=== PATIENT | male | born 1960 | race Two or more races ===

== ENCOUNTER 2019-06-13 06:41 | Inpatient (IN) | payer OTHER ==
--- NOTE | 2019-06-12 08:30 | NUR ---
ADMITTED VIA [facility]#[id number].
[2019-06-13] VITALS (18 sets, daily range): BP systolic 131–208; BP diastolic 73–126
[~2019-06-13] VITALS: Ht 165.1 cm; Wt 93.0 kg
[2019-06-13] MEDS ORDERED: ceFAZolin sod 2 GM in D5W 110 ML IVPB ONE (07:00)
--- NOTE | 2019-06-13 07:11 | Pre-Procedure Note/Attestation ---
Pre-Procedure Note/Attestation Complete Prior to Procedure Planned Procedure: not applicable Procedure Narrative: Cervical 56 artificial disc replacement, cervical 67 anterior cervical discectomy and fusion Indications for Procedure Pre-Operative Diagnosis: herniation C56,67 Attestation I attest that I discussed the nature of the procedure; its benefits; risks and complications; and alternatives (and the risks and benefits of such alternatives ), prior to the procedure, with the patient (or the patient's legal abrasives sales representative). I attest that, if there was a reasonable possibility of needing a blood transfusion, the patient (or the patient's legal abrasives sales representative) was given the [facility] standardized written summary, pursuant to the [place] Blood Safety Act ([place] Health and Safety Code # 1645, as amended). I attest that I re-evaluated the patient just prior to the surgery and that there has been no change in the patient's H&P, except as documented below: Casa Costa MD Jun 13, 2019 07:11
--- NOTE | 2019-06-13 07:12 | Brief Operative Note ---
Immediate Post Operative Note Operative Note Chief Complaint: neck pain and radiculopathy Pre-op Diagnosis: herniation C56,67 Procedure: Cervical 56 artificial disc replacement, cervical 67 anterior cervical discectomy and fusion Post-op Diagnosis: same as pre-op Findings: consistent w/pre-op dx studies Surgeon: Julissa Ampoule Filler And Sealer: Gil Anesthesia: general Specimen: none Complications: none Condition: stable Fluids: IVF Estimated Blood Loss: minimal Drains: none Implant(s) used?: Yes - prodisc c sz5, nuvasive interlock sz 6 ,screws 13mmx3 Casa Costa MD Jun 13, 2019 07:12
[2019-06-13] MEDS ORDERED: MEDROL DOSEPAK4 MG ORAL (08:02)
[2019-06-13] MEDS ORDERED: CELEBREX200 MG ORAL (08:02)
[2019-06-13] MEDS ORDERED: LR 1000ml 1,000 ML IVLG SCH (08:37)
--- NOTE | 2019-06-13 08:38 | Anethesia Preoperative Eval ---
Anesthesia Pre-op PMH/ROS General Date of Evaluation: Jun 13, 2019 Time of Evaluation: 09:16 Anesthesiologist: Lm ASA Score: ASA 3 Mallampati Score Class I : Soft palate, uvula, fauces, pillars visible Class II: Soft palate, uvula, fauces visible Class III: Soft palate, base of uvula visible Class IV: Only hard plate visible Mallampati Classification: Class III Surgeon: Julissa Diagnosis: Neck Pain Surgical Procedure: ADR C5-6, ACDF C6-7 Anesthesia History: none Social History: current smoker Family History: no anesthesia problems Allergies: Coded Allergies: No Known Allergies (Unverified , 06/11/19) Medications: see eMAR Patient NPO?: Yes NPO Date: Jun 12, 2019 NPO Time: 1800 Past Medical History Cardiovascular: Reports: HTN, other - HL Pulmonary: Reports: COPD - Smoker Other: obesity - BMI 36 Anesthesia Pre-op Phys. Exam Physician Exam Last Vital Signs Date Time Temp Pulse Resp B/P (MAP) Pulse Ox O2 Delivery O2 Flow Rate FiO2 06/13/19 07:55 97.1 59 20 159/97 (117) 98 06/13/19 07:40 Room Air Constitutional: NAD Neurologic: CN 2-12 intact Cardiovascular: RRR Respiratory: CTA Gastrointestinal: S/NT/ND Airway Exam Mallampati Score: Class III MO: limited ROM: limited Teeth: missing, intact Anesthesia Pre-op A/P Risk Assessment & Plan Assessment: ASA 3 Plan: GA, SED, GlideScope Go Status Change Before Surgery: No Pre-Antibiotics Dru Grams Ancef IV Given Within 1 Hr of Incision: Yes Time Given: 09:31 Fuad Amato MD Jun 13, 2019 08:38
[2019-06-13] MEDS ORDERED: HYDROcodone/Acetamin 7.5/325 tab ORAL PRN ×3 (08:45→14:30)
[2019-06-13] MEDS ORDERED: Acetaminophen (Non formulary) 100 ML IV SCH (08:45)
[2019-06-13] MEDS ORDERED: Ketorolac 30mg Inj IV PRN ×2 (08:45)
[2019-06-13] MEDS ORDERED: Midazolam 2mg/2ml Inj IVP PRN (08:45)
[2019-06-13] MEDS ORDERED: Metoclopramide 10mg/2ml Inj IVP PRN ×2 (08:45→14:30)
[2019-06-13] MEDS ORDERED: DiphenhydrAMINE 50mg/ml Inj IVP PRN (08:45)
[2019-06-13] MEDS ORDERED: fentaNYL 100 mcg/2 mL IV PRN (08:45)
[2019-06-13] MEDS ORDERED: oxyCODONE HCL/Acetaminophen 5/325mg ORAL PRN (08:45)
[2019-06-13] MEDS ORDERED: Atropine Sulfate 0.4mg/ml inj IVP PRN (08:45)
[2019-06-13] MEDS ORDERED: HYDROcodone/Acetamin 5/325 tab ORAL PRN ×2 (08:45→14:30)
[2019-06-13] MEDS ORDERED: Hydromorphone 0.5mg/0.5ml inj IVP PRN (08:45)
[2019-06-13] MEDS ORDERED: Meperidine 50mg/ml Inj(FOR RIGORS ONLY) IVP PRN (08:45)
[2019-06-13] MEDS ORDERED: LORazepam Inj 2mg/ml 1ml IV PRN (08:45)
[2019-06-13] MEDS ORDERED: NS Irrig 1000ml ONE (09:00)
[2019-06-13] MEDS ORDERED: Propofol 1,000mg/ 100ml btl IV ONE (09:00)
[2019-06-13] MEDS ORDERED: Sterile Water Irrig 1000ml IRRIG ONE (09:00)
[2019-06-13] MEDS ORDERED: LR 1000ml ONE (09:00)
[2019-06-13] MEDS ORDERED: Thrombin 5000 units TOPIC ONE ×2 (09:07→10:20)
[2019-06-13] MEDS ORDERED: Bacitracin 50000 Units Vial ONE (09:07)
[2019-06-13] MEDS ORDERED: Gelfoam Size TOPIC ONE (09:07)
[2019-06-13] MEDS ORDERED: Rocuronium Bromide 50mg/5ml Inj IV ONE (09:09)
[2019-06-13] MEDS ORDERED: fentaNYL 100 mcg/2 mL ONE ×3 (09:19→11:24)
[2019-06-13] MEDS ORDERED: Sodium Chloride 10ml vial INJ ONE (09:19)
[2019-06-13] MEDS ORDERED: Lidocaine 1% MPF 10mg/ml 5ml ONE (09:19)
[2019-06-13] MEDS ORDERED: Lidocaine 1% Plain 30 ml INJ ONE ×2 (09:20→10:48)
--- NOTE | 2019-06-13 10:14 | Immediate Post-Op Evaluation ---
Immediate Post-Op Evalulation Immediate Post-Op Evalulation Procedure: ADR C5-6, ACDF C6-7 Date of Evaluation: Jun 13, 2019 Time of Evaluation: 12:27 IV Fluids: 1000 LR Blood Products: 0 Estimated Blood Loss: 75 Urinary Output: 300 Blood Pressure Systolic: 208 Blood Pressure Diastolic: 116 Pulse Rate: 91 Respiratory Rate: 16 O2 Sat by Pulse Oximetry: 97 Temperature (Fahrenheit): 97 Pain Score (1-10): 2 Nausea: No Vomiting: No Complications 0 Patient Status: awake, reacts, patent, extubated, none Hydration Status: adequate Dru Grams Ancef IV Given Within 1 Hr of Incision: Yes Time Given: 09:31 Fuad Amato MD Jun 13, 2019 10:14
[2019-06-13] MEDS ORDERED: Glycopyrrolate 0.2mg/ml 1ml Vial ONE (11:36)
[2019-06-13] MEDS ORDERED: Neostigmine 1mg/ml 10ml Inj ONE (11:36)
[2019-06-13] MEDS: Labetalol 5mg/ml 20ml vial IV PRN ×2 (12:27→12:51)
--- NOTE | 2019-06-13 13:05 | NUR ---
1300 DR LIRIANO CALLED AWARE OF HEMATOMA ON INCISION SITE . ICE PACK APPLIED . UPDATED OF PTS CONDITION
--- NOTE | 2019-06-13 14:00 | NUR ---
NURSE NOTES: Received report from Olivia Adkins RN. pt a/a/o sleeping in bed with nos signs of distress or other issues at this time. pt VS: 145/91, HR: 63, temp: 98.2, O2 sat: 99% on 3L via n/c. surgical dressing intact with Dermabond and ice pack. pt has an hematoma per repot Dr. Costa and Dr. Matthews are aware. Gabriel cath was removed prior to sending the pt out to the floor. Gabriel out put 300ml. RN will monitor post void. IV on the Left AC gauge#18 running LR's RN will change fluids as indicated by MD. at bed side. call light within reach, bed in lowest position. side rales up x2. I will f/u as needed.
[2019-06-13] MEDS ORDERED: Naloxone 0.4mg/ml Inj IVP PRN (14:30)
[2019-06-13] MEDS ORDERED: Morphine Sulfate 4mg/ml Inj (IV USE ONLY) IV PRN (14:30)
[2019-06-13] MEDS ORDERED: Milk of Magnesia 30ml Ud ORAL PRN (14:30)
[2019-06-13] MEDS ORDERED: HYDROmorphone 1mg/ml Carpuject IVP PRN (14:30)
[2019-06-13] MEDS ORDERED: Chloraseptic Spray 20mL Bottle ORAL PRN (15:00)
[2019-06-13] MEDS: NS w/KCl 20mEq 1000ml 1,000 ML IV SCH (15:32)
[2019-06-13] MEDS: ceFAZolin sod 1 GM in D5W 55 ML IV SCH (17:35)
[2019-06-13] MEDS: Docusate 100mg cap ORAL SCH (17:35)
[2019-06-13] MEDS: Dexamethasone 4mg/ml vial IVP SCH (17:35)
[2019-06-13] MEDS: Morphine Sulfate 2mg/ml Inj(IV/IM USE ONLY) IV PRN ×2 (17:46→17:53)
--- NOTE | 2019-06-13 19:26 | NUR ---
HAND-OFF: Report given to Micah HOLLIDAY, pt in stable condition. - pt was able to void after Gabriel cath was removed.
--- NOTE | 2019-06-13 20:11 | NUR ---
NURSE NOTES: Received report from AM RNTerry. Patient is resting with no c/o pain or SOB on room air. Anterior neck wound sealed with dermabond. Dark purple hematoma visible with no additional redness or swelling. Fluids running to left AC IV. Requesting food at this time. Family at bedside.
--- NOTE | 2019-06-13 20:17 | General Progress Note ---
Assessment/Plan Assessment/Plan: neck pain and radiculopathy herniation C56,67 Cervical 56 artificial disc replacement, cervical 67 anterior cervical discectomy and fusion PLAN 1. incentive spirometry 2. SCD 3. PT evaluation and therapy 4. Hydration 5. Pain management 6. discharge once stable with outpatient follow up Subjective Allergies: Coded Allergies: No Known Allergies (Unverified , 06/11/19) Subjective asked to follow up postop Objective Last 24 Hour Vital Signs Date Time Temp Pulse Resp B/P (MAP) Pulse Ox O2 Delivery O2 Flow Rate FiO2 06/13/19 20:00 98.1 76 18 131/73 (92) 98 06/13/19 18:23 97.7 06/13/19 16:00 97.7 65 21 136/80 (98) 97 06/13/19 14:40 97.8 61 20 137/79 (98) 97 06/13/19 14:10 98.1 61 21 150/90 (110) 97 06/13/19 13:45 97.4 06/13/19 13:40 97.6 65 20 140/93 (109) 97 06/13/19 13:31 63 15 145/91 98 Nasal Cannula 4 06/13/19 13:25 97.4 60 16 163/100 98 Nasal Cannula 4 06/13/19 13:15 62 14 153/92 100 Nasal Cannula 4 06/13/19 13:09 69 15 178/105 100 Simple Mask 6 06/13/19 13:00 64 12 173/99 100 Simple Mask 6 06/13/19 12:51 70 174/116 06/13/19 12:50 68 14 178/99 99 Simple Mask 6 06/13/19 12:40 74 13 186/102 98 Simple Mask 6 06/13/19 12:35 69 11 182/126 96 Simple Mask 6 06/13/19 12:30 68 12 196/105 96 Simple Mask 6 06/13/19 12:27 82 206/119 06/13/19 12:25 82 14 206/119 98 Simple Mask 6 06/13/19 12:20 80 14 190/120 98 Simple Mask 6 06/13/19 12:16 97.0 91 13 208/116 98 Simple Mask 6 06/13/19 12:15 91 16 97 06/13/19 07:55 97.1 59 20 159/97 (117) 98 06/13/19 07:40 Room Air Height (Feet): 5 Height (Inches): 5.00 Weight (Pounds): 205 Objective WDWN NAD clear breath sounds bilaterally without rhonchi or wheeze [id number] without MRG NABS nontender no HSM no CCE nonfocal Andrew Gaxiola MD Jun 13, 2019 20:17
[2019-06-14] VITALS: BP 166/84
[2019-06-14] MEDS: Dexamethasone 4mg/ml vial IVP SCH ×3 (00:14→12:53)
[2019-06-14] MEDS: ceFAZolin sod 1 GM in D5W 55 ML IV SCH ×2 (00:14→10:38)
[2019-06-14] MEDS: NS w/KCl 20mEq 1000ml 1,000 ML IV SCH ×2 (00:14→11:00)
[2019-06-14] MEDS: Morphine Sulfate 4mg/ml Inj (IV USE ONLY) IV PRN ×2 (00:24→05:38)
[2019-06-14 04:00] VITALS: BP 182/80
--- NOTE | 2019-06-14 07:45 | Operative Note - Dictated ---
DATE OF OPERATION: 06/13/2019 SURGEON: Casa Costa M.D., Orthopedic Spine Surgeon. DINKEY ENGINE FIRER/FIREMAN: SELAM Casillas. ANESTHESIOLOGIST: Fuad Amaot M.D. PREOPERATIVE DIAGNOSES: 1. Intractable neck pain. 2. Radiculopathy. 3. Herniation, C5-C6 and C6-C7. 4. Neural foraminal stenosis, C5-C6 and C6-C7. 5. Stenosis. POSTOPERATIVE DIAGNOSES: 1. Intractable neck pain. 2. Radiculopathy. 3. Herniation, C5-C6 and C6-C7. 4. Neural foraminal stenosis, C5-C6 and C6-C7. 5. Stenosis. PROCEDURE PERFORMED: 1. Anterior cervical discectomy and artificial disc replacement of C5-C6 using a Synthes ProDisc-C size 5 height. 2. Anterior cervical discectomy and fusion of C6-C7 using NuVasive Cervical Interlock C size 6 PEEK cage and three 13 mm screws with Osteocel 1 mL allograft bone and local autograft. 3. Use of intraoperative microscope. 4. Motor evoked potential monitoring. 5. Somatosensory evoked potential monitoring. 6. Supervision and interpretation of fluoroscopy. COMPLICATIONS: None. ANESTHESIA: General. ESTIMATED BLOOD LOSS: Less than 50 mL. INDICATIONS FOR SURGERY: This patient is a 58-year-old male, who has a history of diagnoses as listed above. As of result of this, the patient sustained intractable neck pain, radiculopathy, herniation, C5-C6 and C6-C7, neural foraminal stenosis, C5-C6, C6-C7, and stenosis. We tried a course of conservative management but despite this course there was still a significant component of persistent, recalcitrant neck pain and arm pain. The MRI demonstrated significant neural foraminal compromise secondary to disc herniations at C5-C6 and C6-C7. We had a long discussion with Ángel regarding the risks and benefits of surgery. Our discussion included but was not limited to nonoperative management, chiropractic management, another epidural steroid injection as well definitive management in the form of surgery. We recommended an artificial disc replacement of cervical C5-C6 and anterior cervical discectomy and fusion of cervical and C6-C7 as final definitive management. We reviewed the risks and benefits of surgery with the patient. Our discussion included a comprehensive review of the clinical issues and the nature of the clinical decision. We reviewed the alternatives, including doing nothing. The patient elected to proceed accordingly with an artificial disc replacement of cervical C5-C6 and anterior cervical discectomy and fusion of cervical and C6-C7. We had a long discussion regarding the risks, alternatives and benefits of surgery. Our description of the risks included a discussion in person as well as a signed consent which detailed all pertinent risks from the procedure itself. Briefly, our discussion included but was not limited to infection, bleeding, pseudarthrosis, spinal cord injury, neurovascular injury, dural tear, CSF leak, neuropathy, paralysis, permanent weakness/drop foot/drop arm, paresthesias, blindness, palsy and weakness. The patient understood there may be a need for a revision surgery or additional procedures. Approach-related complications including dysphonia, dysphagia, blindness, permanent vocal cord and neural injury, hematoma, swallowing and breathing difficulty. Medical complications were reviewed including liver, kidney, shock, cardiopulmonary failure, anesthesia complications including , swelling, damage to the musculature, larynx/voice injury or loss, esophagus/throat, trachea, blood vessels and muscles/muscular sprain and lungs/pneumothorax during this surgical procedure; injury to deeper structures may be temporary or permanent. After this review of risks, the patient understood these and elected to proceed. A written and verbal consent was given. We discussed the pros and cons of all the alternatives. We discussed the uncertainties associated with the decision. Afterwards I assessed the patient's understanding and explored their preferences. All questions were answered and no guarantees were given. Medical clearance was obtained prior to surgery. INTRAOPERATIVE FINDINGS: At C5-C6, there was a noticeable tear in the posterior longitudinal ligament approximately 20 degrees cephalad to caudad. Through this annular tear I noticed a remnant of the herniated nucleus pulposus through the outer limb of the tear itself. This was probed with the Microsect curette which led posteriorly to the disc fragment itself encroaching on the neural foramina along the thecal sac and spinal cord. The disc itself was spongy and not calcified whatsoever. At C6-C7, the disc itself was spongy, not calcified or degenerated posterior to the outer annulus fibrosus tissues of the disc. I noticed a tear in the PLL. The tear was again approximately 20 degrees cephalad to caudad. Posterior to the tear itself, once it was probed and I noted a herniated fragment, which was bilobed, more encroaching on the right side of neural foramina and entered in neural elements at C6-C7. DESCRIPTION OF PROCEDURE: Under the benefit of general endotracheal anesthesia and with the assistance of the entire operative team, the patient was moved from the gurney onto the operative table in the supine position. The head was secured and carefully positioned appropriately. Bilateral arms were secured with Gel Pads and foam and all bony prominences were padded. For the bilateral lower extremities SCD and AMRITA hose were placed for DVT prophylaxis. A surgical timeout was called which corroborated our planned procedure of an artificial disc replacement of cervical C5-C6 and anterior cervical discectomy and fusion of cervical and C6-C7. Preoperative antibiotics were administered within 30 minutes of the incision for antibiotic prophylaxis. Using lateral fluoroscopic radiography, the operative levels were delineated. Next the wound was prepped and draped with Chlorhexidine and sterile drapes. An incision was based on lateral fluoroscopy and we centered our incision at the C5-C6 and C6-C7. Interspace and next using a standard Aranda-Fernández anterior based approach the incision was taken down through the skin and subcutaneous tissues until the vertebral bodies and their corresponding disc spaces were visualized. A needle was placed into the interspace to confirm placement of the operative interspace and we performed the remainder of procedure under microscopic visualization. Next, using a bipolar and Bovie cautery to ensure meticulous hemostasis, the longus colli was mobilized bilaterally and retractors were placed deep to the longus colli bilaterally to address retraction. Next, we turned our attention to the radical anterior discectomy. This was initially performed at C5-C6. First by using a 15 blade scalpel followed by narrow pituitaries and a Microsect 5-B curette was used to denude the endplate of all cartilaginous tissue. Next using a Teramind Hany AM8 drill bit the vertebral endplates were denuded of all residual cartilage in a [id number] and layer by layer fashion, and ultimately the posterior uncinate joints bilaterally and posterior osteophytic lips and margins were carefully denuded until clear visualization of the posterior longitudinal ligament was possible. An endplate preparation was performed in the exact same fashion using an intervertebral production crew supervisor, sequential distraction was obtained throughout the disc space. We saw a tear/rent in the PLL and this was carefully mobilized and dissected using a Microsect 1-B curet until we visualized a discrete disc herniation with compression of the spinal cord as well as neural foramina right. This neural foraminal compression was carefully resected using a Kerrison-1 and Kerrison-2 rongeurs until complete decompression of the spinal cord was visualized and complete decompression of the neural foramina and nerve root therein as well as the axilla and lateral margin of the nerve root was visualized and subsequently completely decompressed. The family was notified at one hour intervals throughout the procedure to provide for consistent updates. We next turned our attention towards trialing our implant within the disc space. We initially tried size 5 and this ProDisc Cervical spacer fit well in regards to depth and width. This implant was opened and prepared. Next under direct visualization I confirmed excellent fit in respect to the anterior and posterior vertebral bodies, the uncinate joints and in regards to toggle. Once satisfied with this placement on serial AP and lateral fluoroscopy I turned my attention towards cutting our ana. These were cut in the bones using a reciprocating drill and afterwards all free fragments of bone were irrigated. Next FloSeal was placed into the interspace, then removed in its entirety and the implant was inserted using fluoroscopic guidance. Next the Synthes ProDisc C size 5 ADR was then carefully advanced and secured into the intervertebral space under direct visualization and with supervision of AP and lateral fluoroscopic views. I next turned my attention towards the radical anterior discectomy. This was then performed at Cervical C6-C7 first by using a 15 blade scalpel followed by narrow pituitaries and a micro-sect 5-B curette was used to denude the endplate of all cartilaginous tissue. Next using a Teramind Hany AM8 drill bit the vertebral endplates were denuded of all cartilaginous tissue in a [id number] and layer by layer fashion, and ultimately the posterior uncinate joints bilaterally and posterior osteophytic lips and margins were carefully denuded until wide and thorough visualization of the posterior longitudinal ligament was possible. At this level the endplate preparation was performed in the exact same fashion using an intervertebral production crew supervisor, sequential distraction was obtained throughout the disc space. We saw a tear/rent in the PLL and this was carefully mobilized and dissected using a micro-set 1-B curette until we visualized an obvious disc herniation with compression of the spinal cord as well as neural foramina right sided. This neural foraminal compression was carefully resected using a Kerrison-1 and Kerrison-2 rongeurs until complete decompression of the spinal cord was visualized and complete decompression of the neural foramina and nerve root therein as well as the axilla and lateral margin of the nerve root was visualized and subsequently completely decompressed. We next turned our attention towards trialing our implant within the disc space. We initially tried size 5 and afterwards size 6 trial from the NuVasive interlock system at each level, which appeared to be appropriate under AP and lateral fluoroscopy as well as in terms of its height, depth, width and lack of toggle. The PEEK polyetheretherketone interbody cages were then both packed with allograft bone from Osteocel and local autograft bone matrix. Next these were then carefully advanced and secured into their intervertebral spaces under direct visualization and with supervision of AP and lateral fluoroscopic views. We next turned our attention towards plating. Plating was performed at each level with the [employer] interlock-C plating system. A total of three screws, size 13 mm in length were inserted and confirmed under AP and lateral fluoroscopy and confirmed to be in excellent position. After a finger sweep we confirmed removal of all sponges. The retractor was removed and we next turned our attention to meticulous hemostasis with FloSeal and bipolar cautery. After the sponge and needle count was again found to be correct with our second count, we next turned our attention to closure. The wound was again copiously irrigated with antibiotic impregnated saline Closure consisted of 4-0 clear nylon for the platysma, and 5-0 clear nylon for the superficial skin. Final skin closure and dressings consisted of Dermabond. Prior to final closure, a final radiograph was obtained which demonstrated the hardware is intact with excellent position throughout. The patient tolerated the procedure well. The patient was carefully extubated after the conclusion of surgery. We discussed the findings of the surgery with the family upon completion of the case. At this point the patient was transferred to the spine floor for further observation. Casa Costa M.D. DR: LEE JOB#: [id number] CC: CIARAN
--- NOTE | 2019-06-14 07:51 | NUR ---
HAND-OFF: Report given to MG Ayala. Patient in stable condition.
--- NOTE | 2019-06-14 07:52 | NUR ---
NURSE NOTES: Received report form MG Obrien. Rounding done with outgoing nurse. Pt a/o x 4, in bed. No respiratory distress noted. Denies any pain at this time. Neck surgical dressing is C/D/I. Bed in lowest position, call light within reach. Will continue to monitor.
[2019-06-14 08:00] VITALS: BP 184/89
[2019-06-14] MEDS: Docusate 100mg cap ORAL SCH (08:51)
--- NOTE | 2019-06-14 09:13 | 48 Hour Post Anesthesia Eval ---
Post Anesthesia Evaluation Procedure: ADR C5-6, ACDF C6-7 Date of Evaluation: Jun 14, 2019 Airway: patent Nausea: No Vomiting: No Hydration Status: adequate Cardiopulmonary Status: at baseline Mental Status/LOC: patient returned to baseline Follow-up Care/Observations: Patient hypertensive this am. Adequate BP controlled recommended Post-Anesthesia Complications: 0 Follow-up care needed: N/A - further care as per primary team Clare Dean MD Jun 14, 2019 09:13
[2019-06-14 10:00] VITALS: BP 161/85
[2019-06-14] MEDS ORDERED: NORVASC5 MG ORAL (11:35)
[2019-06-14] MEDS ORDERED: NORCO 10-325 T1 EACH ORAL (11:35)
[2019-06-14] MEDS ORDERED: CARISOPRODOL350 MG ORAL (11:36)
[2019-06-14 12:00] VITALS: BP 155/90
--- NOTE | 2019-06-14 12:13 | NUR ---
P.T Note: P.T evaluation completed and tx initiated per spinal protocol. See P.T evaluation for current functional status.
[2019-06-14 12:53] VITALS: BP 155/90
--- NOTE | 2019-06-14 13:35 | NUR ---
NURSE NOTES: [facility] pharmacy delivered home meds ([place], Norvasc), not [facility]. Patient spoke to the pharmacist at [facility] pharmacy and pt will crop picker [facility] pharmacy located in [place].
--- NOTE | 2019-06-14 13:45 | NUR ---
NURSE NOTES: Discharge instruction was given to pt/. Home meds were given. Belongings list was checked. IV access/arm band was removed. Pt a/o x 4. Pt discharged with in stable condition.
--- NOTE | 2019-06-14 14:58 | General Progress Note ---
Assessment/Plan Assessment/Plan: neck pain and radiculopathy herniation C56,67 Cervical 56 artificial disc replacement, cervical 67 anterior cervical discectomy and fusion PLAN 1. incentive spirometry 2. SCD 3. PT evaluation and therapy 4. Hydration 5. Pain management 6. discharge home impression, plan, and exam edited and reviewed in detail care discussed with RN Subjective Allergies: Coded Allergies: No Known Allergies (Unverified , 06/11/19) Subjective asked to follow doing well dc planning Objective Last 24 Hour Vital Signs Date Time Temp Pulse Resp B/P (MAP) Pulse Ox O2 Delivery O2 Flow Rate FiO2 06/14/19 12:53 155/90 06/14/19 12:00 97.6 63 20 155/90 (111) 98 06/14/19 10:00 67 161/85 (110) 06/14/19 09:00 Room Air 06/14/19 08:53 184/89 06/14/19 08:00 97.1 71 20 184/89 (120) 96 06/14/19 04:00 97.4 72 20 182/80 (114) 96 06/14/19 00:00 98.3 79 16 166/84 (111) 96 06/13/19 21:00 Room Air 06/13/19 20:00 98.1 76 18 131/73 (92) 98 06/13/19 18:23 97.7 06/13/19 16:00 97.7 65 21 136/80 (98) 97 Intake and Output 06/13/19 06/14/19 19:00 07:00 Intake Total 2600 ml 1200 ml Output Total 350 ml Balance 2250 ml 1200 ml Intake Oral 1000 ml IV Total 1600 ml 1200 ml Output Urine Total 300 ml Estimated Blood Loss 50 ml Height (Feet): 5 Height (Inches): 5.00 Weight (Pounds): 205 Objective WDWN NAD clear breath sounds bilaterally without rhonchi or wheeze [id number] without MRG NABS nontender no HSM no CCE nonfocal Andrew Gaxiola MD Jun 14, 2019 14:58
--- NOTE | 2019-06-14 16:45 | Discharge Summary ---
DATE OF ADMISSION: 06/13/2019 DATE OF DISCHARGE: 06/14/2019 PROCEDURE PERFORMED DURING ADMISSION: Artificial disc replacement of C5-C6, anterior cervical discectomy and fusion of C6-C7. REASON FOR ADMISSION: Herniation, C5-C6 and C6-C7. HOSPITAL COURSE/TREATMENT RENDERED: DISCHARGE PHYSICAL EXAM: 1. Patient was ambulating with and without the assistance of physical therapy. 2. Prior to discharge home incision was clean and dry with minimal swelling. 3. Follows commands. 4. Alert and oriented. 5. Gabriel discontinued, voiding. 6. Incentive spirometer at bedside. 7. IVF hep locked. MOTOR: Demonstrates expected postoperative bulk and tone. Moves biceps, triceps, and deltoid musculature on command. Moves hip flexors, quadriceps, tibialis anterior, EHL, gastrocsoleus musculature on command as well. TREATMENT RENDERED: 1. Daily nursing care. 2. Physical Therapy. 3. Occupational Therapy. 4. Intravenous medications. 5. Oral medications. 6. Daily postoperative examinations by Spine surgery team. CONDITION OF PATIENT ON DISCHARGE: The condition on discharge is stable for discharge to home. DISCHARGE INSTRUCTIONS: Our specific instructions relating to physical activity, medications diet and follow-up care are detailed in our standard operative folder and were given to this patient prior to surgery. We will however summarize these briefly as stated below. Regarding physical activity we would like the patient to limit their flexion, extension and rotation. We also require a limitation on their bending lifting and twisting. All medication has been called in prior to surgery to their pharmacy of choice. They can resume their regular diet once tolerated. We would like them to shower and limit soaking the wound in a tub/Jacuzzi/the ocean for a period of one month or until the incision is completely healed. We will have them follow up in our office in three weeks time for their regularly scheduled appointment. They understand to call our office tomorrow to schedule the time for their three week followup appointment. The patient will notify us should they experience any increase in the severity of pain, redness/swelling/ or drainage from their incision. Casa Costa M.D. DR: RENUKA JOB#: [id number] CC:
--- NOTE | 2019-06-17 16:23 | Diagnostic Imaging Report ---
INDICATION: Pain, intraoperative TECHNIQUE: Intraoperative imaging Fluoroscopy time: 50.3 seconds Total dose: 0.57009 mGym2 Total number of images: 5 COMPARISON: None FINDINGS: Intraoperative images document disc prosthesis at C5-6 and anterior fusion hardware at C6-7. IMPRESSION: Intraoperative imaging, as described
== END 2019-06-14 14:30 | disposition home or self-care (01) | DRG 473 ==
LOC: SDSOVERFLO 06:41 → 3E 13:43
PROC: 0RR30JZ Replacement of Cervical Vertebral Disc with Synthetic Substitute, Open Approach (ICD-10-PCS; principal; 2019-06-13 09:30)
PROC: 0RG10A0 Fusion of Cervical Vertebral Joint with Interbody Fusion Device, Anterior Approach, Anterior Column, Open Approach (ICD-10-PCS; principal; 2019-06-13 09:30)
PROC: 01N10ZZ Release Cervical Nerve, Open Approach (ICD-10-PCS; principal; 2019-06-13 09:30)
PROC: 0RB30ZZ Excision of Cervical Vertebral Disc, Open Approach (ICD-10-PCS; principal; 2019-06-13 09:30)
DX: M50.222 Other cervical disc displacement at C5-C6 level (principal); M48.02 Spinal stenosis, cervical region; V89.2XXS Person injured in unspecified motor-vehicle accident, traffic, sequela; F17.200 Nicotine dependence, unspecified, uncomplicated
CPT/HCPCS: 36415; 72040; 76000; 86850; 86900; 86901; 87081; 94003; 94150; J2405; J2710

== ENCOUNTER 2020-06-16 05:11 | Inpatient (IN) | payer OTHER ==
[2020-06-16] VITALS (14 sets, daily range): BP systolic 126–158; BP diastolic 66–98
[~2020-06-16] VITALS: Ht 165.1 cm; Wt 90.0 kg
[~2020-06-16 05:11] MED LIST: CARISOPRODOL350 MG ORAL; CELEBREX200 MG ORAL; MEDROL DOSEPAK4 MG ORAL; NORCO 10-325 T1 EACH ORAL; NORVASC5 MG ORAL
--- NOTE | 2020-06-16 06:29 | Anethesia Preoperative Eval ---
Anesthesia Pre-op PMH/ROS General Date of Evaluation: Jun 16, 2020 Anesthesiologist: Charly ASA Score: ASA 2 Mallampati Score Class I : Soft palate, uvula, fauces, pillars visible Class II: Soft palate, uvula, fauces visible Class III: Soft palate, base of uvula visible Class IV: Only hard plate visible Mallampati Classification: Class II Surgeon: Julissa Diagnosis: Lumbar radiculopathy Surgical Procedure: Right L4-5, L5-S1 hemilaminotomy, foraminotomy, microdiscectomy Anesthesia History: none Family History: no anesthesia problems Allergies: Coded Allergies: No Known Allergies (Unverified , 06/11/19) Medications: see eMAR Patient NPO?: Yes NPO Date: Jun 16, 2020 NPO Time: 00:00 Past Medical History Cardiovascular: Reports: HTN, other - HLD; Denies: CAD, DC, valve dz, arrhythmia Pulmonary: Denies: asthma, COPD, DARION, other Gastrointestinal/Genitourinary: Reports: GERD; Denies: CRI, ESRD, other Neurologic/Psychiatric: Denies: dementia, CVA, depression/anxiety, TIA, other Endocrine: Denies: DM, hypothyroidism, steroids, other HEENT: Denies: cataract (L), cataract (R), glaucoma, [place] (L), [place] (R), other Hematology/Immune: Denies: anemia, DVT, bleeding disorder, other Musculoskeletal/Integumentary: Reports: OA, other - right leg numbness; Denies: RA, DJD, DDD, edema PSxH Narrative: ACDF Anesthesia Pre-op Phys. Exam Physician Exam Last Vital Signs Date Time Temp Pulse Resp B/P (MAP) Pulse Ox O2 Delivery O2 Flow Rate FiO2 06/16/20 06:01 Room Air 06/16/20 05:43 96.8 50 18 139/88 (105) 100 Constitutional: NAD Cardiovascular: RRR Respiratory: CTA Airway Exam Mallampati Score: Class II MO: full ROM: full Teeth: intact Anesthesia Pre-op A/P Labs see chart Studies Pre-op Studies: EKG - SB, CXR - WNL, other - COVID negative Risk Assessment & Plan Assessment: ASA II Plan: GA Status Change Before Surgery: No Pre-Antibiotics Drug: Ancef 2g Given Within 1 Hr of Incision: Yes Clare Parks MD Jun 16, 2020 06:29
[2020-06-16] MEDS ORDERED: fentaNYL 100 mcg/2 mL IV PRN (06:30)
[2020-06-16] MEDS ORDERED: Lidocaine 1% MPF 10mg/ml 5ml ONE (06:30)
[2020-06-16] MEDS ORDERED: Hydromorphone 0.5mg/0.5ml inj IVP PRN (06:30)
[2020-06-16] MEDS ORDERED: DiphenhydrAMINE 50mg/ml Inj IVP PRN (06:30)
[2020-06-16] MEDS ORDERED: Midazolam 2mg/2ml Inj IVP PRN (06:30)
[2020-06-16] MEDS ORDERED: Labetalol 5mg/ml 20ml vial IV PRN (06:30)
[2020-06-16] MEDS ORDERED: LR 1000ml 1,000 ML IVLG SCH (06:30)
[2020-06-16] MEDS ORDERED: LORazepam Inj 2mg/ml 1ml IV PRN (06:30)
[2020-06-16] MEDS ORDERED: Midazolam 2mg/2ml Inj ONE (06:31)
[2020-06-16] MEDS ORDERED: Gelfoam Size TOPIC ONE (06:34)
[2020-06-16] MEDS ORDERED: Vancomycin 1gm vial IVPB ONE (06:34)
[2020-06-16] MEDS ORDERED: Thrombin 5000 units TOPIC ONE (06:34)
[2020-06-16] MEDS ORDERED: Ropivacaine 5mg/ml Vial 30ml INJ ONE (06:34)
[2020-06-16] MEDS ORDERED: Bacitracin 50000 Units Vial ONE (06:35)
[2020-06-16] MEDS ORDERED: Rocuronium Bromide 50mg/5ml Inj IV ONE (06:54)
[2020-06-16] MEDS ORDERED: propofoL 1,000mg/100ml IV ONE (07:00)
[2020-06-16] MEDS ORDERED: ceFAZolin sod 2 GM in NS 55 ML IVPB ONE (07:00)
[2020-06-16] MEDS ORDERED: Metoclopramide 10mg/2ml Inj ONE (07:20)
[2020-06-16] MEDS ORDERED: LR 1000ml ONE (07:20)
[2020-06-16] MEDS ORDERED: NS Irrig 2000ml IRRIG ONE (07:20)
[2020-06-16] MEDS ORDERED: Sterile Water Irrig 2000ml IRRIG ONE (07:20)
--- NOTE | 2020-06-16 07:29 | Pre-Procedure Note/Attestation ---
Pre-Procedure Note/Attestation Complete Prior to Procedure Planned Procedure: right Procedure Narrative: Right sided Lumbar 45 and Lumbar 5 Sacral 1 microdiscectomy, Lumbar 45 bilateral hemilaminotomy and foraminotomy Lumbar 5 Sacral 1 right sided hemilaminotomy and foraminotomy Indications for Procedure Pre-Operative Diagnosis: L45 and L5S1 herniation and neuroforaminal stenosis Attestation I attest that I discussed the nature of the procedure; its benefits; risks and complications; and alternatives (and the risks and benefits of such alternatives), prior to the procedure, with the patient (or the patient's legal financial representative). I attest that, if there was a reasonable possibility of needing a blood transfusion, the patient (or the patient's legal financial representative) was given the [place] Department [employer] Services standardized written summary, pursuant to the [place] Blood Safety Act ([place] Health and Safety Code # 1645, as amended). I attest that I re-evaluated the patient just prior to the surgery and that there has been no change in the patient's H&P, except as documented below: Casa Costa MD Jun 16, 2020 07:29
[2020-06-16] MEDS ORDERED: Chloraseptic Spray 20mL Bottle ORAL PRN (07:30)
[2020-06-16] MEDS ORDERED: Milk of Magnesia 30ml Ud ORAL PRN (07:30)
[2020-06-16] MEDS ORDERED: Metoclopramide 10mg/2ml Inj IVP PRN (07:30)
[2020-06-16] MEDS ORDERED: Naloxone 0.4mg/ml Inj IVP PRN (07:30)
[2020-06-16] MEDS ORDERED: Morphine Sulfate 2mg/ml Inj(IV/IM USE ONLY) IV PRN (07:30)
[2020-06-16] MEDS ORDERED: HYDROcodone/Acetamin 5/325 tab ORAL PRN (07:30)
[2020-06-16] MEDS ORDERED: Morphine Sulfate 4mg/ml Inj (IV USE ONLY) IV PRN (07:30)
[2020-06-16] MEDS ORDERED: HYDROcodone/Acetamin 7.5/325 tab ORAL PRN ×2 (07:30)
--- NOTE | 2020-06-16 07:30 | Brief Operative Note ---
Immediate Post Operative Note Operative Note Chief Complaint: back pain and radiculopathy Pre-op Diagnosis: L45 and L5S1 herniation and neuroforaminal stenosis Procedure: Right sided Lumbar 45 and Lumbar 5 Sacral 1 microdiscectomy, Lumbar 45 bilateral hemilaminotomy and foraminotomy Lumbar 5 Sacral 1 right sided hemilaminotomy and foraminotomy Post-op Diagnosis: same as pre-op Findings: consistent w/pre-op dx studies Surgeon: Julissa Hospital Technician: Gil Anesthesiologist: Charly Anesthesia: general Specimen: none Complications: none Condition: stable Fluids: IVF Estimated Blood Loss: minimal Drains: none Implant(s) used?: No Casa Costa MD Jun 16, 2020 07:30
--- NOTE | 2020-06-16 10:00 | Immediate Post-Op Evaluation ---
Immediate Post-Op Evalulation Immediate Post-Op Evalulation Procedure: L4-5, L5-S1 lumbar laminotomy, foraminotomy, microdiscectomy Date of Evaluation: Jun 16, 2020 Time of Evaluation: 10:02 IV Fluids: 1.1L Blood Products: 0 Estimated Blood Loss: 25 Urinary Output: 200 Blood Pressure Systolic: 126 Blood Pressure Diastolic: 76 Pulse Rate: 72 Respiratory Rate: 16 O2 Sat by Pulse Oximetry: 99 Temperature (Fahrenheit): 97 Pain Score (1-10): 0 Nausea: No Vomiting: No Complications 0 Patient Status: awake, reacts, patent, none Hydration Status: adequate Drug: Ancef 2g Given Within 1 Hr of Incision: Yes Clare Parks MD Jun 16, 2020 10:00
--- NOTE | 2020-06-16 11:40 | NUR ---
NURSE NOTES: Handoff received from Andra HOLLIDAY. Patient arrived safely to 3E via patient bed. Left hand IV is patent and asymptomatic, lower back dressing clean dry and intact, ice pack applied. Gabriel catheter is patent and draining to gravity. Neuro check is normal, no reports of numbness or tingling. Patient reports 3/10 pain. Bed is low and locked, side rails up x2, call light is within reach.
--- NOTE | 2020-06-16 13:09 | NUR ---
CASE MANAGEMENT: REVIEW SI: LUMBAR RADICULOPATHY RIGHT L4-5, L5-S1 HEMILAMINOTOMY, FORAMINOTOMY, MICRODISCECTOMY T 97.1 HR 53 RR 13 BP 158/91 SAT 100% SIMPLE MASK 6 SARS-CoV-2, DOTTIE NEGATIVE IS: LR IV X1 PROPOFOL IV X1 VERSED IV X1 THROMBIN TOPICAL X1 ROCURONIUM BROMIDE IV X1 ANCEF IV X1 MED/SURG STATUS DCP: PATIENT IS FROM HOME
--- NOTE | 2020-06-16 13:16 | Diagnostic Imaging Report ---
INDICATION: Pain, intraoperative TECHNIQUE: Intraoperative imaging Fluoroscopy time: 3.7 seconds Total dose: 0.09225 mGym2 Total number of images: 2 COMPARISON: None FINDINGS: Intraoperative images document surgical tool projected posterior to what is presumably the L5 vertebral body. Subsequent images document surgical tools projected posterior to the L4-5 and L5-S1 discs. IMPRESSION: Intraoperative imaging, as described
[2020-06-16] MEDS: NS w/KCl 20mEq 1000ml 1,000 ML IV SCH ×2 (13:22→23:51)
[2020-06-16] MEDS: ceFAZolin sod 1 GM in D5W 55 ML IV SCH ×2 (13:22→22:14)
[2020-06-16] MEDS: Morphine Sulfate 4mg/ml Inj (IV USE ONLY) IV PRN ×3 (13:48→22:14)
--- NOTE | 2020-06-16 14:39 | 48 Hour Post Anesthesia Eval ---
Post Anesthesia Evaluation Procedure: L4-5, L5-S1 lumbar laminotomy, foraminotomy, microdiscectomy Date of Evaluation: Jun 16, 2020 Time of Evaluation: 14:38 Blood Pressure Systolic: 130 0: 66 Pulse Rate: 62 Respiratory Rate: 20 Temperature (Fahrenheit): 98.4 O2 Sat by Pulse Oximetry: 99 Airway: patent Nausea: No Vomiting: No Pain Intensity: 3 Hydration Status: adequate Cardiopulmonary Status: Stable Mental Status/LOC: patient returned to baseline Follow-up Care/Observations: 0 Post-Anesthesia Complications: 0 Follow-up care needed: N/A Fuad Amato MD Jun 16, 2020 14:39
--- NOTE | 2020-06-16 16:45 | Operative Note - Dictated ---
DATE OF OPERATION: 06/16/2020 SURGEON: Casa Costa MD, Orthopaedic Spine Surgeon. CERTIFIED LOW VISION THERAPIST SURGEON: SELAM Hooper. ANESTHESIA: General endotracheal anesthesia. PREOPERATIVE DIAGNOSES: 1. Intractable back pain. 2. Intractable leg pain. 3. Worsening radiculopathy. 4. Weakness. 5. Herniated nucleus pulposus, L4-L5 and L5-S1 herniation. 6. Neural foraminal stenosis, L4-L5 and L5-S1. POSTOPERATIVE DIAGNOSES: 1. Intractable back pain. 2. Intractable leg pain. 3. Worsening radiculopathy. 4. Weakness. 5. Herniated nucleus pulposus, L4-L5 and L5-S1 herniation. 6. Neural foraminal stenosis, L4-L5 and L5-S1. PROCEDURES PERFORMED: 1. Right-sided L4-L5 and L5-S1 microdiscectomy. 2. L4-L5 and L5-S1 hemilaminotomy, foraminotomy, and medial facetectomy. 3. L4-L5 and L5-S1 neural foraminotomy through a transpedicular intraforaminal approach. 4. Use of intraoperative microscope. 5. Supervision and interpretation of intraoperative fluoroscopy. 6. Supervision and interpretation of somatosensory-evoked potential and free-running EMG monitoring. ESTIMATED BLOOD LOSS: Less than 100 mL. COMPLICATIONS: None. INDICATIONS FOR THE PROCEDURE: The patient presents for intractable back pain and radiculopathy. The patient tried and failed a prolonged course of conservative management, including but not limited to chiropractic therapy, physical therapy, nonsteroidal anti-inflammatory drugs, medication, ice packs as well as epidural injection. Despite these therapies, the patient still developed recalcitrant pain and elected for definitive management in the form of right-sided L4-L5 and L5-S1 microdiscectomy; L4-L5 and L5-S1 hemilaminotomy, foraminotomy, and medial facetectomy; L4-L5 and L5-S1 neural foraminotomy through a transpedicular intraforaminal approach. CONSENT: We had a long discussion with the patient regarding definitive surgical treatment options. The patient's MRI demonstrated herniated nucleus pulposus, L4-L5 and L5-S1 herniation, neural foraminal stenosis of L4-L5 and L5-S1, and as a result, I felt the patient would benefit from the discectomy as well as neural foraminotomy at this level. We had a long discussion with the patient regarding the risks, alternatives, and benefits of surgery. Our description of the risks included a discussion in person as well as a signed consent which detailed all pertinent risks and the procedure itself. Briefly, our discussion included but was not limited to infection, bleeding, pseudarthrosis, spinal cord injury, neurovascular injury, dural tear, CSF leak, neuropathy, paralysis, permanent weakness/drop foot, paresthesias blindness, palsy, and weakness. The patient understood there may be a need for revision surgery or additional procedures. Approach-related complications including dysphonia, dysphagia, blindness, permanent vocal cord and neural injury, hematoma, swallowing and breathing difficulty. Medical complications including liver, kidney, shock, and cardiopulmonary failure. Anesthesia complications including , swelling. Damage to the musculature, larynx (voice injury or loss),esophagus (throat), trachea, blood vessels and muscles (muscular sprain) and lungs (pneumothorax) during this surgical procedure. Injury to deeper structures may be temporary or permanent. The patient understood these and elected to proceed. A written and verbal consent was given. We discussed the pros and cons of all the alternatives. We discussed the uncertainties associated with the decision. Afterwards, I assessed the patient's understanding and explored his preferences. All questions were answered and no guarantees were given. Medical clearance was obtained prior to surgery. OPERATIVE FINDINGS: L4-L5; severe neural foraminal stenosis bilaterally with a large disc herniation, which was ____ sided causing impingement on the exiting and traversing nerve roots at L4-L5. The disc itself was collapsed with some moderate remaining disc height. There was evidence of decreased elasticity to the posterior margin of the disc and we found this attributable to a tear in the posterior longitudinal ligament through which a herniated fragment had been impinging the neural elements. The disc itself was soft and spongy; not dissected, dried, or dehydrated. L5-S1; the disc itself had appropriate disc height. This was well maintained. The disc itself was soft and spongy. I noticed a small disc herniation through a tear in the posterior longitudinal ligament, which was approximately torn at a 10-degree angle cephalad to caudad. DESCRIPTION OF PROCEDURE: Under the benefit of general endotracheal anesthesia and with the assistance of the entire operative team, the patient was moved from the rhoulka onto the operative table in the prone position on a Gustavo frame. The head was secured and positioned appropriately. Bilateral arms were secured with Gel pads and foam and all bony prominences were padded. The bilateral lower extremity SCD and AMRITA hose were placed for DVT prophylaxis. A surgical timeout was called which corroborated our planned procedure. Preoperative Antibiotics were administered within 30 minutes of the incision for prophylaxis. Decadron was given for preoperative steroids. Using lateral radiography, the operative levels were delineated. An incision was marked based on our interpretation of lateral radiography and afterwards the body was prepped and draped in the usual sterile manner. The family was notified that we were ready to commence surgery and were called in the waiting room hourly for updates An incision was based on our lateral fluoroscopic image to center the incision at the L5-S1 interspace. The wound was prepped and draped in the usual sterile fashion. Using a scalpel a midline incision was taken down through the skin and subcutaneous tissues until the overlying hemilamina of L4-L5 and L5-S1 were visualized. Next, using meticulous hemostasis, hemilaminotomies were dissected and retractors were placed. Using a [employer] dental, we confirmed placement at the L4-L5 and L5-S1 interspace. We next turned our attention to our decompression. A standard hemilaminotomy foraminotomy medial facetectomy was performed at each level in standard fashion using a Midas-Hany type AM8 drill bit, straight and angled curettage, and Kerrison 4 rongeurs until the lateral thecal sac margin and traversing nerve root was visualized. All remainders of the ligamentum flavum and lateral bony margins were resected in total with angled curettage and Kerrison 4 rongeurs until the lateral thecal sac margin and traversing nerve root was visualized and decompressed. We next turned our attention toward our L4-L5 and L5-S1 microdiscectomy on the right side. A Grant 4 was used to gently mobilize the thecal sac medially and this was held retracted with a bayonetted nerve root retractor. It was at this point that we noted a large broad-based disc protrusion with encroachment dorsally on the thecal sac neural foraminal contents. A bayonet and nerve root retractor was then placed carefully to retract the thecal sac and a discectomy was performed using a combination of a long handled 15 blade scalpel, downgoing and straight pituitaries and downgoing curettage. Afterward the disc space was irrigated twice with 20 mL of antibiotic-impregnated saline. All loose and free-floating disc fragments were carefully resected with a narrow pituitary. Having been satisfied with our decompression after our discectomy of all neural elements, we next turned our attention to our neural foraminoplasty/foraminotomy. This was performed through a transpedicular intraforaminal approach using an access probe followed by a neuro check device, which confirmed ventral placement of our nerve root. Once we confirmed we were safe, we next turned our attention towards placement of our size 10 file under direct microscopic visualization and under lateral fluoroscopy. Using pre and post reciprocation imaging, we were able to visualize our direct decompression given the reciprocation allowed for re-creation of the neural foraminal arch at L4-L5 and L5-S1. Afterwards, hemostasis was obtained with 60 mL of antibiotic-impregnated saline followed by FloSeal and Gelfoam. After sponge and needle count were found to be correct, we next turned our attention to closure. Closure consisted of 1-0 Vicryl in standard interrupted fashion. Zosyn was placed deep to the fascia and superficial to the fascia for antibiotic prophylaxis. Skin closure was performed with 2-0 Vicryl in interrupted fashion followed by a running Monocryl for the skin. Final dressings consisted of Dermabond for the superficial skin, Telfa and Tegaderm. The patient tolerated the procedure well. The patient was extubated after the conclusion of surgery without incident. We discussed the findings of the surgery with the family upon completion of the case. At this point, the patient will be transferred to the spine floor for further observation. Casa Costa M.D. DR: LEE JOB#: [id number] CC:
[2020-06-16] MEDS: Docusate 100mg cap ORAL SCH (17:19)
--- NOTE | 2020-06-16 18:01 | General Progress Note ---
Subjective Allergies: Coded Allergies: No Known Allergies (Unverified , 06/11/19) Subjective asked to follow up Objective Last 24 Hour Vital Signs Date Time Temp Pulse Resp B/P (MAP) Pulse Ox O2 Delivery O2 Flow Rate FiO2 06/16/20 16:58 69 153/91 06/16/20 16:00 97.1 69 20 153/91 (111) 98 06/16/20 14:39 62 20 99 06/16/20 14:18 98.4 06/16/20 12:20 98.4 62 20 130/66 (87) 99 06/16/20 12:00 98.2 59 18 148/85 (106) 100 06/16/20 11:40 98.6 53 17 158/91 (113) 100 06/16/20 11:40 Nasal Cannula 3.0 06/16/20 11:10 97.1 55 13 155/74 100 Nasal Cannula 3 06/16/20 10:55 67 13 149/97 100 Nasal Cannula 3 06/16/20 10:40 69 16 149/89 100 Simple Mask 6 06/16/20 10:25 80 16 158/98 100 Simple Mask 6 06/16/20 10:15 73 12 145/84 100 Simple Mask 6 06/16/20 10:05 74 12 128/79 100 Simple Mask 6 06/16/20 10:00 75 12 135/70 100 Simple Mask 6 06/16/20 10:00 72 16 99 06/16/20 09:57 97.0 74 10 126/76 100 Simple Mask 6 06/16/20 06:01 Room Air 06/16/20 05:43 96.8 50 18 139/88 (105) 100 Intake and Output 06/15/20 06/16/20 18:59 06:59 # Voids 1 Height (Feet): 5 Height (Inches): 5.00 Weight (Pounds): 194 Objective WDWN NAD clear breath sounds bilaterally without rhonchi or wheeze [id number] without MRG NABS nontender no HSM no CCE nonfocal Assessment/Plan Assessment/Plan: L4-5, L5-S1 lumbar laminotomy, foraminotomy, microdiscectomy disc disease lumbar hypertension PLAN 1. incentive spirometry 2. SCD 3. PT evaluation and therapy 4. Hydration 5. Pain management 6. discharge once stable with outpatient follow up Andrew Gaxiola MD Jun 16, 2020 18:01
--- NOTE | 2020-06-16 19:17 | NUR ---
NURSE HAND-OFF: Important Events on Shift:[arrived on 3e] Patient Status: stable Diet: regular Pending Orders: Pending Results/Labs: Pending MD notification: Latest Vital Signs: Temperature 97.1 , Pulse 69 , B/P 153 /91 , Respiratory Rate 20 , O2 SAT 98 , Nasal Cannula, O2 Flow Rate 3.0 . Vital Sign Comment: stable Latest Keating Fall Score: 35 Fall Risk: Medium Risk Safety Measures: Call light , Bed Alarm , Side Rails Side Rails x1, Bed position Low and Locked. Fall Precautions: Report given to Agustin HOLLIDAY.
--- NOTE | 2020-06-16 19:30 | NUR ---
NURSE NOTES: Received report from Scott HOLLIDAY. Patient seen in bed in [facility]. IV on the left hand noted, reports a comfortable level of pain as of the moment. SCDs on.
[2020-06-16] MEDS: HYDROmorphone 1mg/ml Carpuject IVP PRN (23:30)
[2020-06-17] VITALS: BP 150/87
--- NOTE | 2020-06-17 00:16 | NUR ---
NURSE NOTES: Patient got very upset reporting that medication was not given to him or that medication(morphine) is not effective. Offered dilaudid instead for breakthrough pain, When given, reported instant relief from pain.
--- NOTE | 2020-06-17 01:20 | NUR ---
NURSE NOTES: Checked on patient, patient is asleep, in no apparent distress nor c/o pain.
--- NOTE | 2020-06-17 02:30 | NUR ---
NURSE NOTES: Checked on patient, he is still asleep, in no apparent distress nor c/o pain.
--- NOTE | 2020-06-17 03:44 | NUR ---
NURSE NOTES: did hourly rounding. Patient still asleep in semifowler's position.
--- NOTE | 2020-06-17 03:59 | NUR ---
NURSE NOTES: Offered pain medication to patient. Refuses as of the moment.
[2020-06-17] MEDS: ceFAZolin sod 1 GM in D5W 55 ML IV SCH (05:30)
--- NOTE | 2020-06-17 06:34 | NUR ---
NURSE HAND-OFF: Important Events on Shift: pain medication more prefers dilaudid. Otherwise stable. Patient Status: stable Diet: regular Pending Orders: to dc mckenna after physical therapy eval Pending Results/Labs:[] Pending MD notification:[] Latest Vital Signs: Temperature 97.5 , Pulse 81 , B/P 150 /87 , Respiratory Rate 20 , O2 SAT 98 , Nasal Cannula, O2 Flow Rate 2.0 . Vital Sign Comment: [] Latest Keating Fall Score: 35 Fall Risk: Medium Risk Safety Measures: Call light Within Reach, Bed Alarm , Side Rails Side Rails x2, Bed position Low and Locked. Fall Precautions: Patient Fall Education Report given to [].
--- NOTE | 2020-06-17 07:30 | NUR ---
NURSE NOTES: WALKING ROUNDS DONE WITH NIGHT RN. PATIENT AWAKE IN BED HAVING BREAKFAST.QUESTIONS ANSWERED, NEEDS MET AT THIS TIME.DISCUSSED PLAN OF CARE FOR THE DAY. VERBALIZED UNDERSTANDING. ASSESSED SURGICAL SITE REMAINS C/D/I. ICE PACK TO SITE. MENDOZA CATHETER PATENT AND SECURED TO RIGHT THIGH. PATIENT DENIES NUMBNESS OR TINGLING TO BUE/ BLE. C/O SURGICAL PAIN. WILL ADMINISTER ANALGESICS ORDERED. RETURN DEMONSTRATION OF I/S FAIR. RE-INSTRUCTED HOW TO USE, WILL NEED RE-INFORCEMENT. BED IN LOW AND LOCKED POSITION. CALL LIGHT ANFD PERSONAL ITEMS WITHIN REACH. BED ALARM ON.
[2020-06-17 08:00] VITALS: BP 148/77
[2020-06-17] MEDS: HYDROmorphone 1mg/ml Carpuject IVP PRN (08:06)
[2020-06-17] MEDS: Docusate 100mg cap ORAL SCH (08:52)
[2020-06-17] MEDS: NS w/KCl 20mEq 1000ml 1,000 ML IV SCH (08:52)
--- NOTE | 2020-06-17 10:29 | General Progress Note ---
Subjective Allergies: Coded Allergies: No Known Allergies (Unverified , 06/11/19) Subjective stable overnight dc planned Objective Last 24 Hour Vital Signs Date Time Temp Pulse Resp B/P (MAP) Pulse Ox O2 Delivery O2 Flow Rate FiO2 06/17/20 09:00 Room Air 06/17/20 08:52 66 148/77 06/17/20 08:36 97.5 06/17/20 08:00 98.8 66 20 148/77 (100) 99 06/17/20 00:00 97.5 06/17/20 00:00 97.5 81 20 150/87 (108) 98 06/16/20 22:44 97.3 06/16/20 21:00 Nasal Cannula 2.0 06/16/20 20:00 97.3 72 20 152/86 (108) 98 06/16/20 18:45 97.1 06/16/20 16:58 69 153/91 06/16/20 16:00 97.1 69 20 153/91 (111) 98 06/16/20 14:39 62 20 99 06/16/20 14:18 98.4 06/16/20 12:20 98.4 62 20 130/66 (87) 99 06/16/20 12:00 98.2 59 18 148/85 (106) 100 06/16/20 11:40 98.6 53 17 158/91 (113) 100 06/16/20 11:40 Nasal Cannula 3.0 06/16/20 11:10 97.1 55 13 155/74 100 Nasal Cannula 3 06/16/20 10:55 67 13 149/97 100 Nasal Cannula 3 06/16/20 10:40 69 16 149/89 100 Simple Mask 6 Intake and Output 06/16/20 06/17/20 19:00 07:00 Intake Total 1300 ml 550 ml Output Total 575 ml 1800 ml Balance 725 ml -1250 ml Intake Oral 450 ml IV Total 1300 ml 100 ml Output Urine Total 550 ml 1800 ml Estimated Blood Loss 25 ml Height (Feet): 5 Height (Inches): 5.00 Weight (Pounds): 194 Objective WDWN NAD clear breath sounds bilaterally without rhonchi or wheeze [id number] without MRG NABS nontender no HSM no CCE nonfocal Assessment/Plan Assessment/Plan: L4-5, L5-S1 lumbar laminotomy, foraminotomy, microdiscectomy disc disease lumbar hypertension PLAN 1. incentive spirometry 2. SCD 3. PT evaluation and therapy 4. Hydration 5. Pain management 6. discharge today per surgery Andrew Gaxiola MD Jun 17, 2020 10:29
--- NOTE | 2020-06-17 11:32 | NUR ---
P.T Note: P.T evaluation completed and tx initiated per spinal protocol. Please refer to P.T evaluation for current functional status.
[2020-06-17 12:00] VITALS: BP 153/95
[2020-06-17] MEDS ORDERED: Tubing IV Secondary IV ONE (15:09)
--- NOTE | 2020-06-17 15:17 | NUR ---
NURSE NOTES: PATIENT DOING VERY WELL TODAY. PAIN CONTROLLED WITH NORCO PO. AMBULATING INDEPENDENTLY. GAIT STEADY USING SPINE PRECAUTIONS TAUGHT. DENIES DIZZINESS. DISCHARGE ORDER RECEIVED; PATIENT AWARE. DC INSTRUCTIONS REVIEWED WITH PATIENT RX GIVEN. BELONGINGS ACCOUNTED FOR. WILL F/U WITH SURGEON DISCUSSED WITH MD TODAY.
--- NOTE | 2020-06-19 11:15 | Discharge Summary ---
Discharge Summary Hospital Course Date of Admission Jun 16, 2020 at 05:11 Date of Discharge Jun 17, 2020 at 15:10 Admitting Diagnosis Herniated nucleus pulposus, L4-L5 and L5-S1 herniation; lumbar radiculopathy Reason for Hospitalization: elective surgery HPI Ángel Whitt is a 59 year old male who was admitted on Jun 16, 2020 at 05:11 for Herniated Nucleus Pulposus, Pain, Radiculopathy Procedures s/p 06/16/[address] Costa 1. Right-sided L4-L5 and L5-S1 microdiscectomy. 2. L4-L5 and L5-S1 hemilaminotomy, foraminotomy, and medial facetectomy. 3. L4-L5 and L5-S1 neural foraminotomy through a transpedicular intraforaminal approach. 4. Use of intraoperative microscope. 5. Supervision and interpretation of intraoperative fluoroscopy. 6. Supervision and interpretation of somatosensory-evoked potential and free-running EMG monitoring. Hospital Course status post surgery course of recovery uneventful initially IV fluids s/p perioperative antibiotic and steroid neurovascular status closely monitored, remained stable incision clean dry and intact , dressed pain management was addressed ; pain was controlled remained hemodynamically stable ambulated with PT fall precautions maintained; safe for ambulation DVT prophylaxis provided use of incentive spirometry was encouraged while in the bed tolerated diet , IV fluids discontinued GI prophylaxis provided antiemetics were on board as needed blood pressure was managed with calcium channel priscila/Amlodipine and remained stable voided freely bowel regimen instituted patient was stable for discharge discharge instructions provided follow up with surgeon in the office as advised FINAL DIAGNOSES: 1. Intractable back pain. 2. Intractable leg pain. 3. Worsening radiculopathy. 4. Weakness. 5. Herniated nucleus pulposus, L4-L5 and L5-S1 herniation. 6. Neural foraminal stenosis, L4-L5 and L5-S1. 7. s/p Right sided Lumbar L4-L5 and Lumbar L5 Sacral S1 microdiscectomy, Lumbar L4-5 bilateral hemilaminotomy and foraminotomy Lumbar L5 Sacral S1 right sided hemilaminotomy and foraminotomy Discharge Medications Continued Medications: Amlodipine Besylate (Norvasc) 5 Mg Tablet 5 MG ORAL DAILY, TAB Carisoprodol* (Carisoprodol*) 350 Mg Tablet 350 MG ORAL BID, #90 TAB Hydrocodone Bit/Acetaminophen 10-325* ([place] 10-325*) 1 Each Tablet 1 TAB ORAL Q8HR PRN for For Pain, #10 TAB 0 Refills PRN PAIN Methylprednisolone (Methylprednisolone*) 4MG Dspk 4 MG ORAL DAILY for 6 Days, #21 EA 0 Refills Day 1: Two tablets before breakfast, one after lunch, one after dinner, and two at bedtime. If started late in the day, take all six tablets at once or divide into two or three doses, unless otherwise directed by prescriber. Day 2: One tablet before breakfast, one after lunch, one after dinner, and two at bedtime Day 3: One tablet before breakfast, one after lunch, one after dinner, and one at bedtime Day 4: One tablet before breakfast, one after lunch, and one at bedtime Day 5: One tablet before breakfast and one at bedtime Day 6: One tablet before breakfast Discharge Condition Upon Discharge: stable Discharge Vital Signs Last Vital Signs Date Time Temp Pulse Resp B/P (MAP) Pulse Ox O2 Delivery O2 Flow Rate FiO2 06/17/20 13:11 97.1 06/17/20 12:00 70 19 153/95 (114) 96 06/17/20 09:00 Room Air 06/16/20 21:00 2.0 Discharge Disposition Patient was discharged home Discharge Instructions Discharge Instructions Special Instructions I have been assigned to complete a D/C Summary on this account. I was not involved in the patient management Iliana Ruiz NP Jun 19, 2020 11:15
== END 2020-06-17 15:10 | disposition home or self-care (01) | DRG 520 ==
LOC: SDSOVERFLO 05:11 → 3E 11:38
PROC: 01NB0ZZ Release Lumbar Nerve, Open Approach (ICD-10-PCS; principal; 2020-06-16 07:00)
PROC: 0SB40ZZ Excision of Lumbosacral Disc, Open Approach (ICD-10-PCS; principal; 2020-06-16 07:00)
PROC: 01NR0ZZ Release Sacral Nerve, Open Approach (ICD-10-PCS; principal; 2020-06-16 07:00)
PROC: 0SB20ZZ Excision of Lumbar Vertebral Disc, Open Approach (ICD-10-PCS; principal; 2020-06-16 07:00)
DX: M51.16 Intervertebral disc disorders with radiculopathy, lumbar region (principal); M51.17 Intervertebral disc disorders with radiculopathy, lumbosacral region; M48.061 Spinal stenosis, lumbar region without neurogenic claudication; M48.07 Spinal stenosis, lumbosacral region; V89.2XXS Person injured in unspecified motor-vehicle accident, traffic, sequela; E78.00 Pure hypercholesterolemia, unspecified; I10 Essential (primary) hypertension; F17.200 Nicotine dependence, unspecified, uncomplicated
CPT/HCPCS: 36415; 72020; 76000; 86850; 86900; 86901; 87081; 94003; 94150; J2250; J2765; U0002